=== PATIENT | female | born 1945 | race Caucasian/White ===

== ENCOUNTER 2021-09-28 00:49 | Inpatient (IN) | payer MEDICARE, BC ==
[~2021-09-28] VITALS: Ht 165.1 cm; Wt 59.0 kg
--- NOTE | 2021-09-28 01:00 | NUR ---
Patient was BIB [facility] from [facility] on a 5150 hold. Per report she was trying to break stuff at the facility. She was being aggressive, combative, distructive
[2021-09-28] MEDS ORDERED: OLAN10TA3 PO (01:55)
[2021-09-28] MEDS ORDERED: CRAN425C6 PO (01:55)
[2021-09-28] MEDS ORDERED: DOCU100C36 PO (01:55)
[2021-09-28] MEDS ORDERED: ASCO500C18 PO (01:55)
[2021-09-28] MEDS ORDERED: GABA-532 PO (01:55)
[2021-09-28] MEDS ORDERED: DIVA125C2 PO (01:55)
[2021-09-28] MEDS ORDERED: ASPI81TA31 PO (01:55)
[2021-09-28] MEDS ORDERED: MULT-213 PO (01:55)
[2021-09-28] MEDS ORDERED: OLAN2.5T3 PO (01:55)
[2021-09-28] MEDS ORDERED: CYCL5TAB PO (01:55)
[2021-09-28] MEDS ORDERED: AMIN30LI27 PO (01:55)
[2021-09-28] MEDS ORDERED: MAGN400O6 PO (01:55)
[2021-09-28] MEDS ORDERED: ACET-73 PO (01:55)
[2021-09-28 02:08] LABS: HEMATOCRIT 35.6 % (31.2-41.9); MEAN CORPUSCULAR HEMOGLOBIN 30.4 uug (24.7-32.8); MEAN CORPUSCULAR VOLUME 86.6 fL (75.5-95.3); PLATELET COUNT (AUTO) 331 K/uL (179-408)
[2021-09-28 02:13] LABS: *BILIRUBIN,URIN NEGATIVE (NEGATIVE); *CLARITY,URINE CLEAR (CLEAR); *COLOR,URINE YELLOW (YELLOW); *KETONES,URINE NEGATIVE (NEGATIVE); *UROBILINOGEN,URINE 0.2 E.U./dl (NORMAL); LEUKOCYTE ESTERASE ,URINE TRACE (NEGATIVE); NITRITE, URINE NEGATIVE (NEGATIVE); PH,URINE 6.5 (5.0-8.0); UGLUCOSE NEGATIVE (NEGATIVE)
[2021-09-28 02:14] LABS: CARBON DIOXIDE 28 mmol/L (21-32); CHLORIDE 102 mmol/L (98-107); CREATININE 0.6 mg/dL (0.6-1.3); GLUCOSE 92 mg/dL (74-106); POTASSIUM 3.7 mmol/L (3.5-5.1); UREA NITROGEN, BLOOD 11 mg/dL (7-18)
[2021-09-28 02:16] LABS: *BLOOD, URINE TRACE (NEGATIVE)
[2021-09-28 02:20] LABS: ALANINE AMINOTRANSFERASE 19 U/L (14-59); ALKALINE PHOSPHATASE 85 U/L (50-136); ASPARTATE AMINOTRANSFERASE 8 U/L (15-37); BILIRUBIN,DIRECT 0.1 mg/dL (0.0-0.2); BILIRUBIN,TOTAL 0.2 mg/dL (0.2-1.0); CREATINE KINASE, TOTAL 66 U/L (26-192); TOTAL PROTEIN, SERUM 6.6 g/dL (6.4-8.2)
[2021-09-28 02:22] LABS: BACTERIA,URINE NONE SEEN /HPF (NONE SEEN); SQUAMOUS EPITHELIAL CELL,UR FEW /HPF (NONE SEEN); WBC,URINE 0-3 /HPF (0-3)
[2021-09-28 02:24] LABS: *AMPHETAMINE, URINE NEGATIVE (NEGATIVE); *CANNABINOID, URINE NEGATIVE (NEGATIVE); *COCCAINE, URINE NEGATIVE (NEGATIVE); *OPIATE, URINE NEGATIVE (NEGATIVE); *PHENCYCLIDINE SCREEN,URINE NEGATIVE (NEGATIVE)
[2021-09-28 02:26] LABS: ACETAMINOPHEN < 2.0 ug/mL (10-30)
[2021-09-28 02:35] LABS: ETHANOL < 3 MG/DL (0-0)
[2021-09-28 03:45] LABS: THYROID STIMULATING HORMONE 2.306 mIU/mL (0.358-3.740)
--- NOTE | 2021-09-28 04:40 | NUR ---
called for bed. Patient will go to [facility]
--- NOTE | 2021-09-28 04:59 | NUR ---
Report given to Alfonso DACOSTA
--- NOTE | 2021-09-28 05:48 | NUR ---
Pt. admitted to [facility] , under care of Dr. Dillon Belongs List completed
[2021-09-28 06:37] VITALS: BP 136/73
--- NOTE | 2021-09-28 07:00 | NUR ---
GPS: PT RECEIVED CAME FROM ER WHEELED AND ACCOMPANIED BY NURSE. PT ON 5149 FOR PROBABLE CAUSE OF DANGER TO OTHERS AND GRAVE DISABILITY EXPIRING ON 09/30 AT 2034. PT CAME FROM [facility] DUE TO BEING AGGRESSIVE AND DESTRUCTIVE. PT ON FULL CODE WITH ALLERGY TO PENICILLIN. ALERT/ORIENTED X 3. AMBULATORY WITH ASSIST, CONTINENT ON B&B. SKIN INTACT. DENIES ANY PAIN OR DISCOMFORT. PT WITH EPISODE OF BEING LOUD AND NEEDY. PT FELT SLEEPY AND JUST WANTED TO GO TO SLEEP. BELONGINGS RECEIVED AND SIGNED BY PT. PT REFUSED TO SIGN OTHER PAPERS. DR SANDY AND GORGE CAMERON WILL FOLLOW UP WITH PT.
[2021-09-28] MEDS ORDERED: MAGNESIUM HYDROXIDE 30 ML LIQUID UDC PO PRN (07:30)
[2021-09-28] MEDS ORDERED: BLOOD SUGAR DIAGNOSTIC 1 EACH STRIP VI ONE (07:30)
[2021-09-28] MEDS ORDERED: MAG HYDROX/AL HYDROX/SIMETH 30 ML LIQUID UDC PO PRN (07:30)
[2021-09-28 07:35] VITALS: BP 146/79
--- NOTE | 2021-09-28 13:10 | NUR ---
Patient's Fabricio was call at [phone], but could not be reached, the call was regards Patient's Covid vaccines, it's still unknown if she took any. Addendum: 09/28/21 at 1635 by BIBI FERNANDO RN Patient's son, not .
[2021-09-28] MEDS: OLANZAPINE 2.5 MG TABLET PO SCH ×2 (13:27→17:14)
[2021-09-28] MEDS: DIVALPROEX SPRINKLE 125 MG CAP.SPRINK PO SCH ×2 (13:27→17:14)
--- NOTE | 2021-09-28 15:20 | NUR ---
Received patient sleeping in her room. A/O X 1 to person. Pt. is agitated, restless, anxious, fixated on drinking water, demanding, needy, argumentative, loud, confused, disorganized. Pt. ambulates with walker. Continent of bladder and bowel, had 2 BM this morning. Denies SI/HI AH/VH, SOB, pain or any discomfort. Requires more than minimal assistance with ADL. Active listening and reality orientation provided. Fall and safety precautions implemented.
[2021-09-28 16:59] VITALS: BP 138/73
[2021-09-28 20:00] VITALS: BP 139/69
[2021-09-28] MEDS: OLANZAPINE 5 MG TABLET PO SCH (20:11)
[2021-09-28] MEDS: TEMAZEPAM 7.5 MG CAPSULE PO PRN (21:51)
--- NOTE | 2021-09-29 03:01 | NUR ---
Patient asleep but arousable, no complain of pain, patient has episode of yelling and screaming at staff, assisted with toileting, cooperative with medications at this time, kept clean and dry, cont to monitor.
[2021-09-29 07:36] VITALS: BP 133/77
[2021-09-29 07:49] LABS: HEMATOCRIT 38.1 % (31.2-41.9); MEAN CORPUSCULAR HEMOGLOBIN 30.3 uug (24.7-32.8); MEAN CORPUSCULAR VOLUME 86.4 fL (75.5-95.3); PLATELET COUNT (AUTO) 322 K/uL (179-408)
[2021-09-29 07:58] LABS: CREATININE 0.6 mg/dL (0.6-1.3); POTASSIUM 3.9 mmol/L (3.5-5.1)
[2021-09-29] MEDS: DIVALPROEX SPRINKLE 125 MG CAP.SPRINK PO SCH ×3 (08:36→17:12)
[2021-09-29] MEDS: OLANZAPINE 2.5 MG TABLET PO SCH ×3 (08:36→17:12)
--- NOTE | 2021-09-29 14:12 | NUR ---
Received patient sleeping in her room. A/O X 2 to person. Pt. is confused, forgetful, disorganized, isolated, compliant with medications. Pt. ambulates with walker, aware of her limitations. Continent of bladder and bowel. Requires minimal assistance with ADL. Denies SI/HI AH/VH, SOB, pain or any discomfort. Pt. is encourage to vent feelings and emotions. Fall and safety precautions implemented.
--- NOTE | 2021-09-29 14:23 | NUR ---
MOISES Initial Discharge Note: Pt currently resides at [facility] ([phone]) [address] [place] [address]. Pt was brought to [facility] on a 5150 hold for a danger to others and gravely disabled adult. Pt will return to [facility] upon discharge. MOISES will contact pt's son, Fabricio ([phone]) and throughout pt's admission regarding pt's status and discharge updates. MOISES betina continue to work with pt, family and MD to ensure a safe and proper discharge plan.
[2021-09-29 16:00] VITALS: BP 141/69
[2021-09-29] MEDS: OLANZAPINE 5 MG TABLET PO SCH (20:12)
[2021-09-29 20:32] VITALS: BP 157/65
[2021-09-29] MEDS: LORAZEPAM 0.5 MG TABLET PO PRN (21:35)
[2021-09-30] MEDS: ACETAMINOPHEN 325 MG TABLET PO PRN (01:09)
[2021-09-30] MEDS: TEMAZEPAM 7.5 MG CAPSULE PO PRN ×2 (01:09→22:33)
--- NOTE | 2021-09-30 05:10 | NUR ---
Patient awake, still episode of screaming, does not follow directions. Patient likes to drink water excessively, yells for more water despite she was given a pitcher of water. Instructed patient not drink too much specially at night and that will kept her awake all night but refused to follow, offer shower this morning but refused.
[2021-09-30] MEDS: OLANZAPINE 2.5 MG TABLET PO SCH ×3 (08:00→16:33)
[2021-09-30] MEDS: DIVALPROEX SPRINKLE 125 MG CAP.SPRINK PO SCH ×3 (08:00→16:33)
[2021-09-30 08:29] VITALS: BP 152/69
[2021-09-30] MEDS: ENSURE ENLIVE (VAN) 240 ML LIQUID PO SCH ×3 (10:30→16:33)
[2021-09-30] MEDS ORDERED: MAGNESIUM HYDROXIDE 30 ML LIQUID UDC PO PRN (13:45)
[2021-09-30 16:04] VITALS: BP 126/71
[2021-09-30] MEDS: OLANZAPINE 5 MG TABLET PO SCH (20:21)
[2021-09-30 20:30] VITALS: BP 114/67
--- NOTE | 2021-10-01 05:32 | NUR ---
GPS: patient slept well. restoril 7.5 mg po given for sleep and effective. no complain of pain, patient has episode of yelling and screaming at staff, assisted with toileting. cooperative with medications and care. kept clean and dry, cont to monitor.
--- NOTE | 2021-10-01 05:53 | NUR ---
slept 5.45 hrs through the night.
[2021-10-01 08:00] VITALS: BP 110/80
[2021-10-01] MEDS: DIVALPROEX SPRINKLE 125 MG CAP.SPRINK PO SCH ×3 (08:16→16:50)
[2021-10-01] MEDS: DOCUSATE SODIUM 100 MG CAPSULE PO SCH (08:17)
[2021-10-01] MEDS: ENSURE ENLIVE (VAN) 240 ML LIQUID PO SCH ×3 (08:17→17:00)
[2021-10-01] MEDS: OLANZAPINE 2.5 MG TABLET PO SCH ×3 (08:17→16:51)
[2021-10-01] MEDS: ASPIRIN 81 MG TAB.CHEW PO SCH (08:17)
--- NOTE | 2021-10-01 14:35 | NUR ---
Received patient is alert and oriented x2 ,able to ambulating with FWW. stay in the room refused to get out of bed .irritable agitated when approach and care provide .compliant with medication ,poor insight and poor judgement ,will continue same treatment plan.
[2021-10-01 16:09] VITALS: BP 108/76
[2021-10-01 20:00] VITALS: BP 116/74
[2021-10-01] MEDS: OLANZAPINE 5 MG TABLET PO SCH (21:02)
[2021-10-01] MEDS: LORAZEPAM 0.5 MG TABLET PO PRN (21:03)
--- NOTE | 2021-10-02 06:56 | NUR ---
Patient observed awake in room, alert, oriented to name, and situation. Patient able to make needs known by method of yelling. isolative, hostile, and demanding on approach. Unkempt, disheveled, unable to follow prompts for adl's. Compliant with medication. Will continue to monitor for safety as well as continue plan of care.
[2021-10-02 08:01] VITALS: BP 108/69
[2021-10-02] MEDS: OLANZAPINE 2.5 MG TABLET PO SCH ×3 (08:25→17:17)
[2021-10-02] MEDS: ASPIRIN 81 MG TAB.CHEW PO SCH (08:25)
[2021-10-02] MEDS: DIVALPROEX SPRINKLE 125 MG CAP.SPRINK PO SCH ×3 (08:25→17:17)
[2021-10-02] MEDS: DOCUSATE SODIUM 100 MG CAPSULE PO SCH (08:25)
[2021-10-02] MEDS: ENSURE ENLIVE (VAN) 240 ML LIQUID PO SCH ×3 (08:29→17:00)
--- NOTE | 2021-10-02 13:20 | NUR ---
patient is alert and oriented x2 ,able to ambulating with FWW. stay in the room refused to get out of bed .irritable agitated when approach and care provide .yelling and screaming out when she needs help,compliant with medication ,poor insight and poor judgement ,will continue same treatment plan.
[2021-10-02 16:02] VITALS: BP 115/68
[2021-10-02] MEDS: OLANZAPINE 5 MG TABLET PO SCH (21:18)
[2021-10-02] MEDS: TEMAZEPAM 7.5 MG CAPSULE PO PRN (21:23)
[2021-10-02 22:30] VITALS: BP 100/63
[2021-10-03 07:54] VITALS: BP 115/62
[2021-10-03] MEDS: DOCUSATE SODIUM 100 MG CAPSULE PO SCH (08:24)
[2021-10-03] MEDS: OLANZAPINE 2.5 MG TABLET PO SCH ×3 (08:24→17:52)
[2021-10-03] MEDS: DIVALPROEX SPRINKLE 125 MG CAP.SPRINK PO SCH ×3 (08:24→17:53)
[2021-10-03] MEDS: ASPIRIN 81 MG TAB.CHEW PO SCH (08:24)
[2021-10-03] MEDS: ENSURE ENLIVE (VAN) 240 ML LIQUID PO SCH ×3 (08:25→17:00)
[2021-10-03 10:21] LABS: CREATININE 0.9 mg/dL (0.6-1.3); POTASSIUM 4.1 mmol/L (3.5-5.1)
[2021-10-03 16:02] VITALS: BP 106/62
--- NOTE | 2021-10-03 19:30 | NUR ---
Received pt awake, alert and orientedx2. Pt on bed and doesn't want to be bothered on her room. Pt in no acute distress. Safety and comfort provided. Will continue to monitor.
[2021-10-03 19:54] VITALS: BP 112/64
[2021-10-03] MEDS: OLANZAPINE 5 MG TABLET PO SCH (20:50)
[2021-10-03] MEDS: ACETAMINOPHEN 325 MG TABLET PO PRN (21:15)
[2021-10-03] MEDS: TEMAZEPAM 7.5 MG CAPSULE PO PRN (21:51)
--- NOTE | 2021-10-03 22:00 | NUR ---
Pt given Restoril 7.5 mg as per pt request at 2150H and Tylenol 650 mg prn at 2114h as per pt stated she has headache. Pt tolerated it well. Pt in no acute distress. Safety and comfort provided. Will continue to monitor.
[2021-10-03] MEDS: LORAZEPAM 0.5 MG TABLET PO PRN (23:24)
--- NOTE | 2021-10-03 23:24 | NUR ---
Pt given Ativan at 2324H for agitation. Pt yelling when she wants something and restless. Pt tolerated it well. Will continue to monitor.
--- NOTE | 2021-10-04 00:37 | NUR ---
Pt Ativan effective pt in no acute distress . Pt sleeping. Will continue to monitor.
--- NOTE | 2021-10-04 05:41 | NUR ---
Pt slept 6 h. Pt in no acute distress. Pt needs constant redirection. Pt verbally aggressive. Prescribed medication given and pt tolerated it well. Safety and comfort provided. Will continue to endorse to incoming nurse for continuity of care.
--- NOTE | 2021-10-04 07:22 | NUR ---
Pt given Ativan 0.5mg prn as per pt stated she feels anxious. Pt tolerated it well. Will endorse to incoming nurse for continuity of care.
[2021-10-04 07:52] VITALS: BP 124/68
[2021-10-04] MEDS: OLANZAPINE 2.5 MG TABLET PO SCH ×3 (08:45→17:28)
[2021-10-04] MEDS: DOCUSATE SODIUM 100 MG CAPSULE PO SCH (08:45)
[2021-10-04] MEDS: DIVALPROEX SPRINKLE 125 MG CAP.SPRINK PO SCH ×3 (08:46→17:28)
[2021-10-04] MEDS: ASPIRIN 81 MG TAB.CHEW PO SCH (08:46)
[2021-10-04] MEDS: ENSURE ENLIVE (VAN) 240 ML LIQUID PO SCH ×3 (08:46→17:28)
--- NOTE | 2021-10-04 10:28 | NUR ---
PT RECEIVED TODAY, ISOLATIVE, DEPRESSED, PT REFUSED TO PARTICIPATE WITH GROUP THERAPY. PT YELLS IF NEEDING SOMETHING FROM STAFF. COMPLIANT WITH MEDS AND TOLERATED WELL. DENIES PAIN OR DISCOMFORT. NO ANXIETY NOTED AT THIS TIME.
--- NOTE | 2021-10-04 14:57 | NUR ---
PT [facility] 14 DAY HOLD HEARING DONE TODAY AND WITH APPROVE PROBABLE CAUSE OF GRAVE DISABILITY ONLY. PT DID NOT PARTICIPATE WITH THE HEARING.
[2021-10-04 15:50] VITALS: BP 136/72
[2021-10-04 20:00] VITALS: BP 122/63
[2021-10-04] MEDS: OLANZAPINE 5 MG TABLET PO SCH (22:05)
[2021-10-04] MEDS: TEMAZEPAM 7.5 MG CAPSULE PO PRN (23:32)
--- NOTE | 2021-10-05 05:17 | NUR ---
Received to care, lying in bed, sleeping intermittently. Compliant with medications. Needy and yelling at times, requiring frequent redirection. Bedtime snacks and fluids were given. PRN Restoril given for insomnia at 2332. She fell asleep a short time later, and continues to sleep. No distress noted.
[2021-10-05 07:49] VITALS: BP 150/87
[2021-10-05] MEDS: OLANZAPINE 2.5 MG TABLET PO SCH ×3 (08:57→17:43)
[2021-10-05] MEDS: ENSURE ENLIVE (VAN) 240 ML LIQUID PO SCH ×3 (08:58→17:43)
[2021-10-05] MEDS: ASPIRIN 81 MG TAB.CHEW PO SCH (08:58)
[2021-10-05] MEDS: DIVALPROEX SPRINKLE 125 MG CAP.SPRINK PO SCH ×3 (08:58→17:43)
[2021-10-05] MEDS: DOCUSATE SODIUM 100 MG CAPSULE PO SCH (08:58)
--- NOTE | 2021-10-05 09:24 | NUR ---
GPS: PT RECEIVED ON BED AWAKEM, ISOLATIVE, WITHDRAWN AND DEPRESSED. REFUSED TO PARTICIPATE WITH GROUP THERAPY. COMPLIANT TO MEDICATION. PT YELLS AND SCREAMS WHEN PT NEEDS SOMETHING. NO AGITATION NOTED AT THIS TIME.
--- NOTE | 2021-10-05 16:00 | NUR ---
MOISES Family Contact: Pt's son, Fabricio ([phone]) contacted MOISES to discuss pt's current status and discharge plan. MOISES discussed that this newswriter will discuss alternative placement options for the pt to not send back to [facility]. MOISES stated she will contact Fabricio once we have an additional accepting facility. Fabricio is aware and agreeable with the discharge plan.
[2021-10-05 16:25] VITALS: BP 124/61
[2021-10-05] MEDS: LORAZEPAM 0.5 MG TABLET PO PRN (18:18)
--- NOTE | 2021-10-05 18:21 | NUR ---
GPS: PT HAS BEEN ATTENTION SEEKER, SCREAMING AND YELLING WHEN SHE NEEDS ATTENTION, EVEN IF SHE WAS ALREADY GIVEN A FRESH WATER AND JUICE, STILL DEMANDING FOR MORE. WAS GIVEN ATIVAN 0.5MG PO AND TOLERATED WELL.
[2021-10-05 20:00] VITALS: BP 117/67
[2021-10-05] MEDS ORDERED: OLANZAPINE 5 MG TABLET PO SCH (21:00)
[2021-10-06] MEDS: LORAZEPAM 0.5 MG TABLET PO PRN ×2 (01:47→20:23)
--- NOTE | 2021-10-06 06:00 | NUR ---
Received to care, lying in bed, sleeping intermittently. Compliant with medications. Needy and yelling at times, requiring frequent redirection. Bedtime snacks and fluids were given. PRN Restoril given for insomnia at 0000. She fell asleep a short time later, but became agitated later, and PRN Ativan was given at 0147. As of now, she remains asleep. No distress noted.
[2021-10-06 07:39] VITALS: BP_SYST 118; BP_SYST 124; BP_DIAS 73; BP_DIAS 79
[2021-10-06] MEDS: DOCUSATE SODIUM 100 MG CAPSULE PO SCH (08:41)
[2021-10-06] MEDS: ASPIRIN 81 MG TAB.CHEW PO SCH (08:41)
[2021-10-06] MEDS: ENSURE ENLIVE (VAN) 240 ML LIQUID PO SCH ×3 (08:42→18:14)
[2021-10-06] MEDS: OLANZAPINE 2.5 MG TABLET PO SCH ×2 (08:42→20:45)
[2021-10-06] MEDS: DIVALPROEX SPRINKLE 125 MG CAP.SPRINK PO SCH ×3 (08:42→17:09)
--- NOTE | 2021-10-06 10:53 | NUR ---
SNF Referral: [facility] faxed patient's referral packet including: History and Physical, Consultation, Progress Notes, Medication List and Labs to the following facilities for review and possible usp placement: [address] [address] ([phone]).
[2021-10-06 11:36] LABS: MEAN CORPUSCULAR HEMOGLOBIN 30.3 uug (24.7-32.8); MEAN CORPUSCULAR VOLUME 86.5 fL (75.5-95.3); PLATELET COUNT (AUTO) 358 K/uL (179-408)
[2021-10-06 11:46] LABS: BILIRUBIN,TOTAL 0.2 mg/dL (0.2-1.0); CREATININE 0.7 mg/dL (0.6-1.3); POTASSIUM 4.5 mmol/L (3.5-5.1); TOTAL PROTEIN, SERUM 6.7 g/dL (6.4-8.2)
[2021-10-06] MEDS: risperiDONE 0.5 MG TABLET PO SCH ×2 (13:23→17:09)
--- NOTE | 2021-10-06 15:03 | NUR ---
Received patient awake in the room. A/O X 1-2 to person. Pt. is demanding, needy, loud, cooperative with nursing care, compliant with medications. Pt. ambulates with a walker. Denies SI/HI AH/VH, SOB, pain or any discomfort. Pt. is continent of bladder and bowel. Pt. is encourage to vent feelings and emotions. Fall and safety precautions implemented.
[2021-10-06 18:38] VITALS: BP 124/73
--- NOTE | 2021-10-06 20:30 | NUR ---
Received patient in her room in bed. She is noted sleeping but easily awaken; she is A/O x 2 . She yells at times when she wants her needs to be known. She is demanding at time but she is able to be re-directed. She denied SI/HI/VH/AH. she is able to CFS. patient in no distress, V/S stable. she was given PO fluids ans snacks. She is reassure for her safety. safety and fall precaution in place. Will continue to monitor.
[2021-10-06 20:42] VITALS: BP 130/72
[2021-10-06] MEDS: TEMAZEPAM 7.5 MG CAPSULE PO PRN ×2 (23:33)
--- NOTE | 2021-10-07 06:57 | NUR ---
Patient slept for approx 6.45 hrs through the night. It was noted with few episode of yelling throughout the night asking for water of straw or food. She is otherwise redirectable. will continue to monitor.
[2021-10-07 08:08] VITALS: BP 121/58
[2021-10-07] MEDS: DIVALPROEX SPRINKLE 125 MG CAP.SPRINK PO SCH ×3 (08:27→17:39)
[2021-10-07] MEDS: ASPIRIN 81 MG TAB.CHEW PO SCH (08:27)
[2021-10-07] MEDS: risperiDONE 0.5 MG TABLET PO SCH ×3 (08:27→17:39)
[2021-10-07] MEDS: DOCUSATE SODIUM 100 MG CAPSULE PO SCH (08:27)
[2021-10-07] MEDS: ENSURE ENLIVE (VAN) 240 ML LIQUID PO SCH ×3 (08:28→17:40)
--- NOTE | 2021-10-07 09:10 | NUR ---
GPS: PT RECEIVED ON BED. ISOLATIVE, DEPRESSED. WITH EPISODE OF YELLING WHEN ASKING FOR SNACKS AND OTHER NEEDS. ENCOURAGE TO ATTEND GROUP THERAPY BUT REFUSES.
[2021-10-07 15:16] VITALS: BP 103/54
--- NOTE | 2021-10-07 18:26 | NUR ---
PT WITH EPISODE OF YELLING WHEN ASKING FOR WATER AND SNACKS. PT MENTIONED, SHE DOES IT FOR ATTENTION. ENCOURAGE PT TO GO TO NURSES STATION IF NEEDING SOMETHING. ALWAYS FIXATED WITH ASKING FOR WATER. EXPLAINED THE RISK AND BENEFITS OF TAKING WATER PT IS HAVING EPISODE OF HYPONATREMIA. WILL MONITOR PT.
[2021-10-07] MEDS: OLANZAPINE 2.5 MG TABLET PO SCH (20:18)
[2021-10-07] MEDS: ACETAMINOPHEN 325 MG TABLET PO PRN (20:18)
[2021-10-07] MEDS: LORAZEPAM 0.5 MG TABLET PO PRN (20:18)
--- NOTE | 2021-10-07 20:37 | NUR ---
GPS: PT YELLING AT HER ROOM, DEMANDING AND GETS ANXIOUS WHEN NEEDS ARE NOT MEET, PT OFFERED ATIVAN AND TOLERATED WELL BY PT. ENCOURAGE THE PT NOT TO YELL SO NOT TO DISTURB OTHER PT.
[2021-10-07] MEDS: TEMAZEPAM 7.5 MG CAPSULE PO PRN (22:05)
[2021-10-07 22:08] VITALS: BP 137/75
[2021-10-08] MEDS: LORAZEPAM 0.5 MG TABLET PO PRN (02:51)
--- NOTE | 2021-10-08 06:23 | NUR ---
Patient slept for approx. 4.30 hrs through the night. She continue having some episode of yelling whenever she needs something; however, she is redirectable. She continue refusing shower. will continue to monitor.
[2021-10-08 07:45] VITALS: BP 113/70
[2021-10-08] MEDS: DOCUSATE SODIUM 100 MG CAPSULE PO SCH (08:28)
[2021-10-08] MEDS: risperiDONE 0.5 MG TABLET PO SCH ×3 (08:28→17:07)
[2021-10-08] MEDS: ASPIRIN 81 MG TAB.CHEW PO SCH (08:28)
[2021-10-08] MEDS: DIVALPROEX SPRINKLE 125 MG CAP.SPRINK PO SCH ×3 (08:28→17:07)
[2021-10-08] MEDS: ENSURE ENLIVE (VAN) 240 ML LIQUID PO SCH ×3 (08:28→17:07)
--- NOTE | 2021-10-08 14:41 | NUR ---
Received patient sleeping in her room. A/O X 1-2 to person. Pt. is demanding, loud, confusing and forgetful, cooperative with nursing care, compliant with medications. Pt. ambulates with assistance of a walker. Denies SI/HI AH/VH, SOB, pain or any discomfort. Pt. is continent of bladder and bowel. Pt. is encourage to verbalize concerns. Fall and safety precautions implemented.
[2021-10-08 16:45] VITALS: BP 96/56
[2021-10-08 19:37] VITALS: BP 104/64
[2021-10-08] MEDS: OLANZAPINE 2.5 MG TABLET PO SCH (20:47)
[2021-10-08] MEDS: TEMAZEPAM 7.5 MG CAPSULE PO PRN ×2 (20:47→23:57)
--- NOTE | 2021-10-09 02:30 | NUR ---
patient is very anxious. ativan 0.5 mg po given.
[2021-10-09] MEDS: LORAZEPAM 0.5 MG TABLET PO PRN (02:33)
--- NOTE | 2021-10-09 03:30 | NUR ---
GPS: PATIENT IS RESTING IN BED QUIETLY. PRN FOR ANXIETY EFFECTIVE. CONTINUE PLAN OF CARE.
--- NOTE | 2021-10-09 04:45 | NUR ---
GPS: Remain cooperative with meds and care. Pt slept 6.15 hrs through the night after sleeping meds was given. Pt in no acute distress. Pt needs constant redirection. Pt verbally aggressive. Safety and comfort provided. Will continue monitoring for safety.
[2021-10-09 07:40] VITALS: BP 136/66
[2021-10-09] MEDS: DIVALPROEX SPRINKLE 125 MG CAP.SPRINK PO SCH ×3 (08:26→17:35)
[2021-10-09] MEDS: DOCUSATE SODIUM 100 MG CAPSULE PO SCH (08:26)
[2021-10-09] MEDS: risperiDONE 0.5 MG TABLET PO SCH ×3 (08:26→17:35)
[2021-10-09] MEDS: ASPIRIN 81 MG TAB.CHEW PO SCH (08:26)
[2021-10-09] MEDS: ENSURE ENLIVE (VAN) 240 ML LIQUID PO SCH ×3 (08:30→17:00)
[2021-10-09 16:02] VITALS: BP 120/71
[2021-10-09 20:11] VITALS: BP 136/68
[2021-10-09] MEDS ORDERED: risperiDONE 1 MG TABLET PO SCH (21:00)
[2021-10-09] MEDS: TEMAZEPAM 7.5 MG CAPSULE PO PRN (21:48)
[2021-10-10] MEDS: LORAZEPAM 0.5 MG TABLET PO PRN (01:52)
--- NOTE | 2021-10-10 03:10 | NUR ---
Received to care, lying in bed, yelling out intermittently. Needs frequent redirection. Bedtime snack was given. Compliant with medications. PRN Restoril was given at bedtime, for increasing restlessness,and she went to sleep. She woke up and became agitated, and yelling,and received PRN Ativan, at 0152, and went back to sleep, again. As of now, she continues to sleep. No distress, noted.
[2021-10-10 07:30] VITALS: BP 110/64
[2021-10-10] MEDS: ASPIRIN 81 MG TAB.CHEW PO SCH (08:26)
[2021-10-10] MEDS: risperiDONE 0.5 MG TABLET PO SCH (08:26)
[2021-10-10] MEDS: DIVALPROEX SPRINKLE 125 MG CAP.SPRINK PO SCH ×3 (08:26→17:39)
[2021-10-10] MEDS: DOCUSATE SODIUM 100 MG CAPSULE PO SCH (08:26)
[2021-10-10] MEDS: ENSURE ENLIVE (VAN) 240 ML LIQUID PO SCH ×3 (08:27→17:00)
[2021-10-10 15:04] VITALS: BP 133/66
[2021-10-10] MEDS: risperiDONE 1 MG TABLET PO SCH (17:39)
[2021-10-10] MEDS: TEMAZEPAM 7.5 MG CAPSULE PO PRN ×2 (20:36→22:38)
[2021-10-10] MEDS ORDERED: risperiDONE 0.5 MG TABLET PO SCH (21:00)
[2021-10-10 21:01] VITALS: BP 126/64
[2021-10-11 07:25] VITALS: BP 98/50
[2021-10-11] MEDS: risperiDONE 1 MG TABLET PO SCH ×2 (08:31→18:13)
[2021-10-11] MEDS: ASPIRIN 81 MG TAB.CHEW PO SCH (08:31)
[2021-10-11] MEDS: DIVALPROEX SPRINKLE 125 MG CAP.SPRINK PO SCH ×3 (08:31→18:13)
[2021-10-11] MEDS: DOCUSATE SODIUM 100 MG CAPSULE PO SCH (08:31)
[2021-10-11] MEDS: ENSURE ENLIVE (VAN) 240 ML LIQUID PO SCH ×3 (08:32→18:13)
[2021-10-11] MEDS: LORAZEPAM 0.5 MG TABLET PO PRN (12:37)
[2021-10-11 15:04] VITALS: BP 113/64
--- NOTE | 2021-10-11 18:27 | NUR ---
GPS: RECEIVED PT TODAY WITH EPISODES OF YELLING WHEN SEEKING ATTENTION. SCREAMS CALLING OUT NAMES. PT FORGETFUL ALWAYS, ASKING WHEN IS BREAKFAST, LUNCH AND DINNER, EVEN SNACKS. RE-ORIENTED ABOUT THE TIME. PT DENIES ANY PAIN OR DISCOMFORT. COMPLIANT WITH MEDS. PT WILL BE DISCHARGE TOMORROW AT [facility].
[2021-10-11 20:00] VITALS: BP 96/47
[2021-10-11] MEDS ORDERED: risperiDONE 2 MG TABLET PO SCH (21:00)
[2021-10-11] MEDS: TEMAZEPAM 7.5 MG CAPSULE PO PRN (21:56)
--- NOTE | 2021-10-11 22:06 | NUR ---
Received patient in hallway. Restless. No suicide ideation. VSS. Ambulatory with walker. All scheduled medications given . PRN Restoril given for sleep.
[2021-10-12] MEDS: LORAZEPAM 0.5 MG TABLET PO PRN (05:00)
--- NOTE | 2021-10-12 05:45 | NUR ---
Patient slept 5.15 hours during the night.
--- NOTE | 2021-10-12 06:00 | NUR ---
Ativan effective. Patient is resting in bed.
[2021-10-12 07:29] LABS: HEMATOCRIT 34.9 % (31.2-41.9); MEAN CORPUSCULAR HEMOGLOBIN 30.5 uug (24.7-32.8); MEAN CORPUSCULAR VOLUME 86.4 fL (75.5-95.3); PLATELET COUNT (AUTO) 287 K/uL (179-408)
[2021-10-12 07:45] VITALS: BP 125/78
[2021-10-12 07:55] LABS: ALANINE AMINOTRANSFERASE 10 U/L (14-59); ALKALINE PHOSPHATASE 81 U/L (50-136); ASPARTATE AMINOTRANSFERASE < 5 U/L (15-37); BILIRUBIN,TOTAL 0.2 mg/dL (0.2-1.0); CARBON DIOXIDE 27 mmol/L (21-32); CHLORIDE 101 mmol/L (98-107); CREATININE 0.5 mg/dL (0.6-1.3); GLUCOSE 95 mg/dL (74-106); TOTAL PROTEIN, SERUM 6.4 g/dL (6.4-8.2); UREA NITROGEN, BLOOD 11 mg/dL (7-18); VALPROIC ACID 69 ug/mL (50-100)
[2021-10-12] MEDS: ASPIRIN 81 MG TAB.CHEW PO SCH (08:42)
[2021-10-12] MEDS: ENSURE ENLIVE (VAN) 240 ML LIQUID PO SCH (08:42)
[2021-10-12] MEDS: DIVALPROEX SPRINKLE 125 MG CAP.SPRINK PO SCH (08:42)
[2021-10-12] MEDS: DOCUSATE SODIUM 100 MG CAPSULE PO SCH (08:42)
[2021-10-12] MEDS: risperiDONE 1 MG TABLET PO SCH (08:42)
--- NOTE | 2021-10-12 09:03 | NUR ---
MOISES Discharge Note: Pt will be discharged to [facility] [address] ([phone]) via Ambulance transportation. MOISES spoke with admin coordinator, Castillo and Jaden at the facility who states they are ready to accept the patient today. Pt is aware and agreeable with discharge plans. Pts son, Fabricio Hernández ([phone]) is aware and agreeable with the discharge plans. MOISES provided Fabricio with the location details and time of discharge. Pt is alert and oriented x2(name and place), is unable to plan for self-care at this time; however, is willing to accept care at SNF. Pt denies any suicidal or homicidal ideation. Pt will follow-up at the facility with Psychiatrist, Dr. Dillon and Casino Gaming Inspector, Dr. Cortez. Pt presents with calm mood and congruent affect. PHARMACY: [facility] ([phone] [address] [place] [address].
--- NOTE | 2021-10-12 09:30 | NUR ---
GPS: PT ON BED RECEIVED ALERT AND ORIENTED TO NAME ONLY. PT CONFUSED AND FORGETFUL. DENIES ANY PAIN OR DISCOMFORT. PT COMPLIANT TO CARE AND MEDS. NO AGITATION NOTED AT THIS TIME. PT WILL BE DISCHARGE TODAY AT [facility].
--- NOTE | 2021-10-12 10:10 | NUR ---
CALLED [facility] SPOKE WITH THEODORE REPORTING DONE. PT IS ACCEPTED TO THE SNF.
--- NOTE | 2021-10-12 11:00 | NUR ---
GPS: PT WAS DISCHARGE FROM THE HOSPITAL. PICKED UP BY AMBULANCE TRANSPORTATION GOING TO [facility]. PT CALM AND PLEASANT. ALL BELONGINGS GIVEN. PSYCHIATRIST DR SANDY WILL BE FOLLOWING UP WITH THE PT AT THE SNF.
== END 2021-10-12 11:41 | DRG 885 ==
LOC: ER 00:59 → GPS 05:34
PROVIDERS: ADMIT Psychiatry & Neurology Psychosomatic Medicine; ATTEND Nurse Practitioner Acute Care
DX: F25.9 Schizoaffective disorder, unspecified (principal); N39.0 Urinary tract infection, site not specified; F31.9 Bipolar disorder, unspecified; F60.9 Personality disorder, unspecified; F09 Unspecified mental disorder due to known physiological condition; F03.90 Unspecified dementia, unspecified severity, without behavioral disturbance, psychotic disturbance, mood disturbance, and anxiety; H91.90 Unspecified hearing loss, unspecified ear; M19.90 Unspecified osteoarthritis, unspecified site; R13.10 Dysphagia, unspecified; Z79.899 Other long term (current) drug therapy; Z88.0 Allergy status to penicillin
CPT/HCPCS: 36415; 80164; 84443; 85025; 93005; 97161; A4663; G0480